=== PATIENT | female | born 1990 | race Caucasian/White ===

== ENCOUNTER 2020-02-27 11:41 | Outpatient (CLI) | payer MEDICAID, OTHER ==
[2020-02-27 18:35] VITALS: BP 129/77
== END 2020-02-27 17:42 | disposition home or self-care (01) ==
LOC: LAB 11:41 → APU 11:41 → LAB 17:42
PROVIDERS: ATTEND Obstetrics & Gynecology
DX: O26.893 Other specified pregnancy related conditions, third trimester (principal); Z67.21 Type B blood, Rh negative; Z3A.28 28 weeks gestation of pregnancy
CPT/HCPCS: 86850; 86900; 86901; 96372; J2790

== ENCOUNTER 2020-03-09 15:32 | Outpatient (CLI) | payer OTHER ==
[2020-03-09 15:57] VITALS: BP 124/58
[2020-03-09 15:57] LABS: Bilirubin,Urine NEG (Negative); Blood,Urine NEG (Negative); Color,Urine Yellow (Yellow); Mucus,Urine FEW /HPF; Protein,Urine <15 mg/dL mg/dL (Negative); Urobilinogen,Urine < 2.0 mg/dL (<2.0)
[2020-03-09] MEDS ORDERED: LACTATED RINGERS 1,000 ML IV SCH (16:45)
== END 2020-03-09 20:45 | disposition home or self-care (01) ==
LOC: TRG 15:32 → APU 15:33 → TRG 20:45
PROVIDERS: ATTEND Obstetrics & Gynecology
DX: O62.9 Abnormality of forces of labor, unspecified (principal); R00.2 Palpitations; Z3A.29 29 weeks gestation of pregnancy
CPT/HCPCS: 59025; 81001; 96360; 96361; J7120